=== PATIENT | male | born 1950 | race Caucasian/White ===

== ENCOUNTER 2018-03-28 11:59 | Emergency (ER) | payer MEDICARE, SELFPAY ==
[2018-03-28 12:00] VITALS: BP 124/83; PULSE 91; RESP 20; TEMP 36.1; O2SAT 93
--- NOTE | 2018-03-28 14:13 | PC.NURSE ---
Pt has bilateral hip pain for a couple weeks as well as left shoulder pain. Pt seen at [facility] 1 week ago with same. [place] arthritis and sent with [facility]. Pt wants a second opinion as he is having difficulty with adl.
[2018-03-28 14:34] VITALS: BP 129/67; PULSE 94; RESP 15; O2SAT 92
[2018-03-28 15:25] VITALS: BP 120/67; PULSE 89; RESP 18; O2SAT 92
--- NOTE | 2018-03-28 16:02 | ED_ITS ---
HPI - Extremity Problem <SHAMIR Rosen - Last Filed: 03/28/18 22:16> General Chief complaint: Extremity Problem,Nontraumatic Stated complaint: hip pain, back pain x2 wks Time Seen by Provider: 03/28/18 14:15 Source: patient Mode of arrival: ambulatory Limitations: no limitations History of Present Illness HPI Narrative: 59-year-old male with history of arthritis is an everyday smoker here for complaint of pain into his bilateral hips for the past several weeks. He was seen recently at his local clinic who obtained x-rays that were negative for any acute fractures or dislocations. X-rays did show degenerative changes. He reports that the pain has not resolved. He does not have a primary care provider. He has been using ibuprofen for discomfort he was also prescribed [place] which she states has not been helping the pain. He denies any trauma to the area. He is able to ambulate although he does have pain when he ambulates. He denies any loss of bladder or bowel control. No stressors or relievers of his discomfort. Pain is at the base of his lower back and into his hip area Related Data Home Medications Medication Instructions Recorded Confirmed hydrocodone-acetaminophen 1 - 2 tab PO Q6H PRN 03/28/18 03/28/18 Allergies Allergy/AdvReac Type Severity Reaction Status Date / Time No Known Drug Allergies Allergy Verified 03/28/18 12:09 Review of Systems <SHAMIR Rosen - Last Filed: 03/28/18 22:16> Constitutional Denies chills, Denies fever(s), Denies lethargy and Denies weakness Eyes Denies change in vision, Denies eye discharge, Denies irritation and Denies loss of vision ENT Ears, Nose, Mouth, and Throat: Denies change in voice, Denies neck pain and Denies sore throat Cardiovascular Denies chest pain, Denies irregular heart rhythm, Denies lightheadedness, Denies palpitations, Denies dyspnea, Denies dyspnea on exertion and Denies orthopnea Respiratory Denies cough, Denies dyspnea, Denies dyspnea on exertion and Denies wheezing Gastrointestinal Gastrointestinal: Denies abdominal pain, Denies change in bowel habits, Denies diarrhea, Denies nausea and Denies vomiting Genitourinary Denies hematuria, Denies flank pain, Denies urinary incontinence and Denies urinary urgency Musculoskeletal Denies neck pain Comments: Lower back pain and hip pain Integumentary/Breasts Denies pruritus, Denies erythema, Denies rash and Denies wounds Neurologic Denies confusion, Denies loss of vision and Denies weakness Psychiatric Denies anxiety, Denies confusion, Denies depression, Denies homicidal ideation and Denies suicidal ideation Endocrine Denies palpitations Hematologic/Lymphatic Denies easy bruising Allergic/Immunologic Denies wheezing Exam <SHAMIR Rosen - Last Filed: 03/28/18 22:16> Initial Vital Signs Initial Vital Signs: Vital Signs Temperature 96.9 F L 03/28/18 12:00 Pulse Rate 91 H 03/28/18 12:00 Respiratory Rate 20 03/28/18 12:00 Blood Pressure 124/83 03/28/18 12:00 Pulse Oximetry 93 03/28/18 12:00 Const General: cooperative and well developed Nutritional Appearance: well nourished Orientation: alert, awake, oriented x3 and not confused HENMT Mouth: oral mucosae normal and moist mucous membranes Eyes Conjunctivae: conjunctivae normal Sclera: sclerae normal Pupils: PERRL EOM: EOM intact bilaterally Resp Effort & Inspection: normal respiratory effort, able to speak in complete sentences, no respiratory distress and no use of accessory muscles Auscultation: clear to auscultation bilaterally, no rales, no rhonchi and no wheezes Cardio Rate: regular rate Rhythm: regular rhythm Heart Sounds: no click, no gallops, no murmurs and no rubs Pulses: normal peripheral pulses Back/Spine/Pelvis Other: Tenderness on palpation to bilateral paraspinals of the lumbar spine no deformities. Distal sensation is intact. Distal range of motion is intact. Distal pulses intact Skin General: no rashes or lesions noted, No jaundice and No petechiae Neuro General: alert, oriented x3, gait normal and no focal motor deficits Speech: speech normal <Angelina Mcgraw DO - Last Filed: 03/31/18 09:12> Initial Vital Signs Initial Vital Signs: Vital Signs Temperature 96.9 F L 03/28/18 12:00 Pulse Rate 91 H 03/28/18 12:00 Respiratory Rate 20 03/28/18 12:00 Blood Pressure 124/83 03/28/18 12:00 Pulse Oximetry 93 03/28/18 12:00 Course <SHAMIR Rosen - Last Filed: 03/28/18 22:16> Vital Signs - 8 hr 03/28/18 14:34 03/28/18 15:25 Pulse Rate 94 H 89 Respiratory Rate 15 18 Blood Pressure [Left Arm] 129/67 120/67 Pulse Oximetry 92 92 <Angelina Mcgraw DO - Last Filed: 03/31/18 09:12> Vital Signs - 8 hr 03/28/18 14:34 03/28/18 15:25 Pulse Rate 94 H 89 Respiratory Rate 15 18 Blood Pressure [Left Arm] 129/67 120/67 Pulse Oximetry 92 92 MDM - Extremity (Nontraumatic) <Scar BrannonSHAMIR gant - Last Filed: 03/28/18 22:16> MDM Narrative Medical decision making narrative: Degenerative changes were seen on x-ray taking 1 week ago I suspect that this is chronic pain. Will refer to orthopedics for further evaluation. Call Orthopedics at number provided schedule follow-up appointment Continue using ibuprofen as needed for any discomfort. Recommend establishing primary care follow-up with primary care return emergency room for any worsening symptoms. Discharge Plan Departure Patient Disposition: Home Clinical Impression: Lower back pain Discharge Date/Time: 03/28/18 16:45 Interventions: ED Discharge Assessment Last Done: 03/28/18 16:45 Instructions: DI for Low Back Pain Activity Restrictions/Additional Instructions: Degenerative changes were seen on x-ray taking 1 week ago I suspect that this is chronic pain. Will refer to orthopedics for further evaluation. Call Orthopedics at number provided schedule follow-up appointment Continue using ibuprofen as needed for any discomfort. Recommend establishing primary care follow-up with primary care return emergency room for any worsening symptoms. Prescriptions: No Action hydrocodone-acetaminophen 5-325 mg tablet 1 - 2 tab PO Q6H PRN (Reason: pain) RF: 0 Referrals: Alden Michele MD [Physician] - <Angelina Mcgraw DO - Last Filed: 03/31/18 09:12> Cosign ED Attending Cosignature Attestation: I was immediately available in the department for consultation. This documentation has been reviewed and I agree with assessment and plan. Supervised by Angelina Mcgraw DO
== END 2018-03-28 16:45 | disposition home or self-care (01) ==
PROVIDERS: Emergency Provider Nurse Practitioner Family
DX: M54.9 Dorsalgia, unspecified (principal)
CPT/HCPCS: 99282